=== PATIENT | male | born 1970 | race Caucasian/White ===

== ENCOUNTER → 2017-08-28 09:59 | Outpatient (CLI) | payer BC, SELFPAY ==
--- NOTE | 2017-08-28 10:04 | XR_ITS ---
XR chest 2V HISTORY: ITS.REASON: COUGH,SHORTNESS OF BREATH ORDERING PHYSICIAN: Mikhail Flowers PATIENT AGE: 47 years COMPARISON: 07/23/2014 FINDINGS: Borderline cardiomegaly without failure. No lobar consolidation or collapse. No acute bony anomalies. No effusions. IMPRESSION: Borderline cardiomegaly otherwise negative. No change with no acute finding.
== END ==
PROVIDERS: PCP Internal Medicine; Visit Provider Internal Medicine
DX: R06.02 Shortness of breath (principal); R05 Cough
CPT/HCPCS: 71046

== ENCOUNTER → 2019-03-04 09:30 | Outpatient (CLI) | payer BC, SELFPAY ==
--- NOTE | 2019-03-04 09:36 | XR_ITS ---
PROCEDURE: XR WRIST LT MIN 3V CLINICAL INDICATION: S/P FALL JAN 2019- LT FOREARM AND WRIST PAIN Fall with injury and pain COMPARISON: XR FOREARM LT 2V from 03/04/2019 FINDINGS: No fracture, dislocation, lytic change, or blastic change evident. No significant degenerative change IMPRESSION: No acute findings. Dictated by: Chauncey Dorantes MD 03/04/2019 12:28 Electronically signed by Chauncey Dorantes MD in [place] 03/04/2019 12:28
== END ==
PROVIDERS: PCP Internal Medicine; Visit Provider Internal Medicine
DX: M79.632 Pain in left forearm (principal); M25.532 Pain in left wrist
CPT/HCPCS: 73090; 73110

== ENCOUNTER → 2019-11-14 08:57 | Outpatient (CLI) | payer BC, SELFPAY ==
--- NOTE | 2019-11-14 | CA_ITS ---
APPROVED REPORT Exam: Exercise Treadmill Technologist: Carmen Solomon, Ht: 5 ft 8 in Wt: 193 lbs BSA: 2.01 m2 HR: 66 bpm BP: 125/92 mmHg Rhythm: NSR,ST ABNORMALITIES III ONLY Medical History Medical History: HTN Medications: Amlodipine,,,,, Hydralazine,,,,, Asa,,,,, Metformin,,,,, Losartan,,,,, Prilosec,,,,, Centrum Silver,,,,, BisOPROLOL/HCTZ,,,,, Gemfibrizil,,,,, Cardiac Risk Factors: HTN, FHX of CAD Stress Test Details Test: Lex HR Resting HR: 69 bpm Max Heart Rate (APMHR): 171 bpm Max HR Achieved: 135 bpm Target HR (85% APMHR): 145 bpm % of APMHR: 78 Recovery HR: 108 bpm BP Resting BP: 125.0/92.0 mmHg Max BP: 181.0/93.0 mmHg Recovery BP: 181.0/93.0 mmHg ECG Resting ECG: NSR,STABNORMALITIES III ONLY Clinical Reason for Termination: Leg Pain Exercise duration: 07:01 min Highest Stage Achieved: Exercise capacity: 10.1 METs Stress ECG Conclusion PATIENT EXERCISED 7:00 ON LEX PROTOCOL WITH MX HEART RATE 134 BPM WHICH IS 83% OF PM FOR AGE. METS = 10.1. TEST STOPPED DUE TO LEGS SHOT . NO CP. NO ARRHYTHMIAS/ECTOPY. <1.5MM ST SEGMENT CHANGES. NEGATIVE STRESS TEST BUT DID NOT ACHIEVE TARGET HEART RATE Test Summary RECOVERY 02:00 0.0 0.0 103 . . . . REST . . . . . . . Sitting REST . . . . . . . Sitting REST 05:37 0.0 0.0 69 . 125/ 92 . . Stage 1 01:00 10.0 1.7 93 . . . . Stage 1 02:00 10.0 1.7 99 . 140/ 92 . . Stage 1 03:00 10.0 1.7 104 . 140/ 92 . . Stage 2 01:00 12.0 2.5 109 . . . . Stage 2 02:00 12.0 2.5 116 . 148/ 92 . . Stage 2 03:00 12.0 2.5 122 . 148/ 92 . . Stage 3 01:00 14.0 3.4 134 . . . . Stage 3 01:01 14.0 3.4 134 . . . Stop exercise at 07:01 RECOVERY 01:00 0.0 0.0 118 . . . . RECOVERY 02:00 0.0 0.0 103 . . . . RECOVERY 03:00 0.0 0.0 97 . 181/ 93 . . RECOVERY 04:00 0.0 0.0 95 . 181/ 93 . . RECOVERY 05:00 0.0 0.0 92 . 181/ 93 . . RECOVERY 06:00 0.0 0.0 88 . 181/ 93 . . RECOVERY 06:21 0.0 0.0 87 . 144/ 93 . . Electronically signed by : Rick Lindsey, 11/14/2019 12:01:27
== END ==
PROVIDERS: PCP Internal Medicine; Visit Provider Internal Medicine
DX: R55 Syncope and collapse (principal)
CPT/HCPCS: 93017

== ENCOUNTER → 2020-03-17 09:49 | Outpatient (CLI) | payer BC, SELFPAY ==
[2020-03-17 10:38] LABS: Basophils # 0.1 K/mm3 (0-0.2); Basophils % 0.6 % (0.1-2.0); Eosinophils # 0.3 K/mm3 (0.0-0.4); Eosinophils % 2.4 % (0.1-12.0); Hematocrit 41.3 % (42.0-52.0); Hemoglobin 13.8 g/dL (14.1-18.0); Lymphocytes % 17.7 % (10-50); Mean Corpuscular HGB Conc 33.4 g/dL (31.8-35.4); Mean Corpuscular Hemoglobin 26.1 pg (27.0-31.2); Mean Corpuscular Volume 78.3 fl (80-94); Mean Platelet Volume 9.5 fl (7.4-10.4); Monocytes # 0.4 K/mm3 (0.1-1.0); Monocytes % 3.5 % (1.7-9.3); Neutrophils # 8.6 K/mm3 (1.8-7.8); Neutrophils % 75.8 % (37.0-80.0); Platelet Count 276 K/mm3 (142-424); Red Blood Count 5.28 M/mm3 (4.60-6.20); Red Cell Distribution Width 14.8 % (11.5-17.5); White Blood Count 11.4 K/mm3 (4.8-10.8)
[2020-03-17 10:46] LABS: Hemoglobin A1C 6.2 % (4.0-6.0)
[2020-03-17 11:03] LABS: Alanine Aminotransferase 24 U/L (12-78); Albumin Level 4.9 g/dl (3.5-5.0); Albumin/Globulin Ratio 1.6 (1.1-1.8); Alkaline Phosphatase 62 U/L (38-126); Anion Gap 15.2 mEq/L (5-15); Aspartate Amino Transferase 24 U/L (17-59); Bilirubin,Total 0.6 mg/dl (0.2-1.3); Blood Urea Nitrogen 25 mg/dl (9-20); Calcium 9.8 mg/dl (8.4-10.2); Carbon Dioxide 29 mmol/L (22.0-30.0); Chloride 101 mmol/L (98-107); Chol/HDL Ratio 5.6 (1-3.5); Cholesterol 168 mg/dl (140-200); Estimated Glomerular Filt Rate 64 ml/min (>60); GFR (African American) 78 ML/MIN (>60); Globulin 3.1 g/dL (1.3-3.2); Glucose 108 mg/dl (74-100); HDL Cholesterol 30 mg/dl (40-60); Potassium 4.2 mmoL/L (3.5-5.1); Sodium 141 mmol/L (136-145); Triglycerides 224 mg/dl (30-150); VLDL Cholesterol 45 mg/dL (0-40)
[2020-03-17 11:14] LABS: Direct LDL Cholesterol 93.32 mg/dL (100-129)
[2020-03-17 11:36] LABS: Prostate Specific Ag, Diagnost 0.702 ng/ml (0.0-4.0)
[2020-03-17 11:47] LABS: Erythrocyte Sedimentation Rate 16 mm/hr (0-15)
[2020-03-17 11:54] LABS: Vitamin B12 296 pg/mL (239-931)
== END ==
PROVIDERS: Visit Provider Internal Medicine
DX: E11.9 Type 2 diabetes mellitus without complications (principal); E78.5 Hyperlipidemia, unspecified; I10 Essential (primary) hypertension; Z79.84 Long term (current) use of oral hypoglycemic drugs; Z12.5 Encounter for screening for malignant neoplasm of prostate
CPT/HCPCS: 36415; 80053; 80061; 82607; 83036; 84153; 85025; 85651

== ENCOUNTER 2021-03-05 16:49 | Emergency (ER) | payer BC, SELFPAY ==
[2021-03-05] VITALS (7 sets, daily range): BP systolic 144–178; BP diastolic 88–116; PULSE 77–98; RESP 18; TEMP 36.6–36.8; O2SAT 97–100; BMI 29.0
--- NOTE | 2021-03-05 18:20 | ECG_ITS ---
APPROVED REPORT Exam: Resting ECG HR:83 bpm ECG Measurements Heart Rate 83 AXES RI 138 P 44 QRSd 82 QRS -22 QT 368 T 18 QTc 432 Conclusion Normal sinus rhythm Normal ECG Electronically signed by : Ted Hidalgo MD 03/07/2021 14:24:28
--- NOTE | 2021-03-05 18:25 | HMH.EDGENADL ---
ED Disposition Clinical Impression: Nausea and vomiting Qualifiers: Vomiting type: unspecified Vomiting Intractability: non-intractable Qualified Code(s): R11.2 - Nausea with vomiting, unspecified Disposition: Home, Self-Care Condition on Discharge: Good Additional Instructions: Take all medications as directed. Stay well-hydrated. [place], soft diet for the next 24 hours. Return the emergency department for continued nausea with vomiting, abdominal pain, fever. Referrals: Mikhail Flowers [Primary Care Provider] - 3 days Time of Disposition: 19:40 - Critical Care Critical Care Time: No Attestation: On 03/05/21, the high probability of a clinically significant, sudden or life threatening deterioration of the following system(s) required my full and direct attention, intervention and personal management. The time I documented below is in addition to time spent performing reported procedures but includes the following listed in this critical care notation. Medical Decision Making - Medical Records Medical records reviewed: Yes: I reviewed the patient's medical records. - Christiano Inquiry Pt receiving controlled substance: No Vital Signs: 03/05/21 18:45 Temperature 97.9 F Temperature Source Oral Pulse Rate [Right Radial] 98 H Respiratory Rate 18 Blood Pressure Source [Right Arm] Automatic Cuff Blood Pressure Position [Right Arm] Supine 02 Sat by Pulse Oximetry 98 Oxygen Delivery Method Room Air - Lab Data Lab results reviewed: Yes: I reviewed the patient's lab results. Lab Results 03/05/21 18:39: SARS-CoV-2 (PCR) Not detected, Influenza A Untype (PCR) Not detected, Influenza Type B (PCR) Not detected 03/05/21 18:40: WBC 6.8, RBC 4.96, Hgb 13.6 L, Hct 37.1 L, MCV 74.8 L, MCH 27.4, MCHC 36.7 H, RDW 15.0, Plt Count 278, MPV 9.5, Neut % (Auto) 67.7, Lymph % (Auto) 23.3, Winkler % (Auto) 7.7, Eos % (Auto) 0.7, Baso % (Auto) 0.6, Neut # (Auto) 4.6, Lymph # (Auto) 1.6, Winkler # (Auto) 0.5, Eos # (Auto) 0.1, Baso # (Auto) 0.0 03/05/21 18:40: Sodium 139, Potassium 3.0 L, Chloride 101, Carbon Dioxide 26, Anion Gap 15.0, BUN 18, Creatinine 1.20, Estimated Creat Clear 90, Estimated GFR 64, Est GFR ( Amer) 78, Glucose 122 H, Calcium 8.1 L, Total Bilirubin 0.7, AST 22, ALT 19, Alkaline Phosphatase 63, Troponin I < 0.01, Total Protein 7.4, Albumin 4.4, Globulin 3.0, Albumin/Globulin Ratio 1.5, Lipase 33 03/05/21 18:54: POC Glucose 121 H Result diagrams: 03/05/21 18:40 03/05/21 18:40 Orders (Tests/Meds): ED MEDICATIONS Generic Name Dose Route Start Last Admin Trade Name Freq PRN Reason Stop Dose Admin Lactated Ringer's 1,000 mls @ 999 mls/hr 03/05/21 18:45 03/05/21 18:52 Lactated Ringer's 1000 Ml Bag IV 03/05/21 19:45 999 mls/hr .Q1H1M GIFTY Administration Discontinued Medications Generic Name Dose Route Start Last Admin Trade Name Freq PRN Reason Stop Dose Admin Hydralazine HCl 10 mg 03/05/21 19:18 03/05/21 19:50 Hydralazine 20mg/Ml Vial IV 03/05/21 19:19 10 mg ONCE ONE Administration Ketorolac Tromethamine 15 mg 03/05/21 19:18 03/05/21 19:46 Ketorolac 30mg/Ml Vial IV 03/05/21 19:19 15 mg ONCE ONE Administration Ondansetron HCl 4 mg 03/05/21 18:34 03/05/21 18:53 Ondansetron 4mg/2ml Vial IV 03/05/21 18:35 4 mg ONCE ONE Administration ORDERS Category Date Time Status Troponin I Q3H Lab 03/05/21 21:30 Ordered Troponin I Q3H Lab 03/06/21 00:30 Ordered - ECG Data Tracing #1 I reviewed this ECG and interpreted as documented below: Normal sinus rhythm, 83 bpm, no ST elevation or depression, no ectopy, normal intervals. ECG initial impression date: 03/05/21 ECG initial impression time: 19:00 Medical Decision Narrative: 50yo M evaluated for nausea/vomiting/diarrhea. Patient is in no acute distress on initial evaluation. He ambulated into the emergency department without difficulty. Routine abdominal work-up was undertaken and the patient's laboratory s
[2021-03-05 18:52] LABS: Basophils % 0.6 % (0.1-2.0); Eosinophils # 0.1 K/mm3 (0.0-0.4); Eosinophils % 0.7 % (0.1-12.0); Hematocrit 37.1 % (42.0-52.0); Hemoglobin 13.6 g/dL (14.1-18.0); Lymphocytes # 1.6 K/mm3 (0.7-4.5); Lymphocytes % 23.3 % (10-50); Mean Corpuscular HGB Conc 36.7 g/dL (31.8-35.4); Mean Corpuscular Hemoglobin 27.4 pg (27.0-31.2); Mean Corpuscular Volume 74.8 fl (80-94); Mean Platelet Volume 9.5 fl (7.4-10.4); Monocytes # 0.5 K/mm3 (0.1-1.0); Monocytes % 7.7 % (1.7-9.3); Neutrophils # 4.6 K/mm3 (1.8-7.8); Neutrophils % 67.7 % (37.0-80.0); Platelet Count 278 K/mm3 (142-424); Red Blood Count 4.96 M/mm3 (4.60-6.20); White Blood Count 6.8 K/mm3 (4.8-10.8)
[2021-03-05 18:59] LABS: Chloride 101 mmol/L (98-107); Sodium 139 mmol/L (136-145)
[2021-03-05 19:01] LABS: POC Glucose,Bedside 121 (70-110)
[2021-03-05 19:01] LABS: Blood Urea Nitrogen 18 mg/dl (9-20); Creatinine Clearance Estimated 90 mL/min (50-200); Estimated Glomerular Filt Rate 64 ml/min (>60); GFR (African American) 78 ML/MIN (>60)
[2021-03-05 19:02] LABS: Alanine Aminotransferase 19 U/L (12-78); Albumin Level 4.4 g/dl (3.5-5.0); Albumin/Globulin Ratio 1.5 (1.1-1.8); Alkaline Phosphatase 63 U/L (38-126); Aspartate Amino Transferase 22 U/L (17-59); Bilirubin,Total 0.7 mg/dl (0.2-1.3); Calcium 8.1 mg/dl (8.4-10.2); Carbon Dioxide 26 mmol/L (22.0-30.0); Glucose 122 mg/dl (74-100); Lipase 33 U/L (23-300); Total Protein,Serum 7.4 g/dl (6.3-8.2)
[2021-03-05 19:17] LABS: Coronavirus 19, PCR Not Detected (NotDetected); Influenza A, PCR Not Detected (NotDetected); Influenza B, PCR Not Detected (NotDetected)
[2021-03-05 19:18] LABS: Troponin I < 0.01 ng/ml (0.00-0.034)
== END 2021-03-05 20:37 | disposition home or self-care (01) ==
PROVIDERS: Emergency Provider Family Medicine; PCP Internal Medicine
DX: R11.2 Nausea with vomiting, unspecified (principal); R19.7 Diarrhea, unspecified; E11.9 Type 2 diabetes mellitus without complications; E78.5 Hyperlipidemia, unspecified; I10 Essential (primary) hypertension; Z20.822 Contact with and (suspected) exposure to COVID-19
CPT/HCPCS: 80053; 82962; 83690; 84484; 85025; 93005; 96365; 96375; 99283; C9803; J2405; U0003; U0005

== ENCOUNTER → 2021-08-31 15:37 | Outpatient (CLI) | payer BC, SELFPAY ==
--- NOTE | 2021-08-31 15:46 | XR_ITS ---
FINAL REPORT CLINICAL HISTORY: RIGHT LOWER BACK PAIN; history of arthritis FINDINGS: LUMBAR SPINE 5 views of the lumbar spine show no fracture or subluxation. There is no malalignment. There is mild degenerative change. IMPRESSION: No acute bony abnormality. Reviewed, Interpreted and Dictated by Stanislav Patel MD Transcribed by Nicole Messina Authenticated by Stanislav Patel MD on 08/31/2021 05:07:12 PM [facility]
== END ==
PROVIDERS: PCP Internal Medicine; Visit Provider Internal Medicine
DX: M54.50 Low back pain, unspecified (principal)
CPT/HCPCS: 72110

== ENCOUNTER → 2021-10-19 13:33 | Outpatient (CLI) | payer BC, SELFPAY ==
[2021-10-19 14:47] LABS: Chloride 101 mmol/L (98-107); Potassium 4.2 mmoL/L (3.5-5.1); Sodium 138 mmol/L (136-145)
[2021-10-19 14:49] LABS: Alanine Aminotransferase 30 U/L (12-78); Alkaline Phosphatase 61 U/L (38-126); Aspartate Amino Transferase 31 U/L (17-59); Bilirubin,Total 0.5 mg/dl (0.2-1.3); Blood Urea Nitrogen 15 mg/dl (9-20); Estimated Glomerular Filt Rate 71 ml/min (>60); GFR (African American) 85 ML/MIN (>60)
[2021-10-19 14:50] LABS: Albumin Level 4.4 g/dl (3.5-5.0); Albumin/Globulin Ratio 1.5 (1.1-1.8); Anion Gap 15.2 mEq/L (5-15); Carbon Dioxide 26 mmol/L (22.0-30.0); Chol/HDL Ratio 5.5 (1-3.5); Cholesterol 137 mg/dl (140-200); Globulin 2.9 g/dL (1.3-3.2); Glucose 157 mg/dl (74-100); HDL Cholesterol 25 mg/dl (40-60); Total Protein,Serum 7.3 g/dl (6.3-8.2); Triglycerides 234 mg/dl (30-150); VLDL Cholesterol 47 mg/dL (0-40)
[2021-10-19 14:55] LABS: Hemoglobin A1C 6.4 % (4.0-6.0)
[2021-10-19 15:01] LABS: Direct LDL Cholesterol 69.97 mg/dL (100-129)
[2021-10-19 15:24] LABS: Prostate Specific Ag Screen 0.7 ng/ml (0.0-4.0)
== END ==
PROVIDERS: PCP Internal Medicine; Visit Provider Internal Medicine
DX: I10 Essential (primary) hypertension (principal); E11.9 Type 2 diabetes mellitus without complications; E78.5 Hyperlipidemia, unspecified; Z79.84 Long term (current) use of oral hypoglycemic drugs; Z12.5 Encounter for screening for malignant neoplasm of prostate
CPT/HCPCS: 80053; 80061; 83036; G0103

== ENCOUNTER → 2021-11-15 10:06 | Outpatient (POV) | payer BC, SELFPAY | PROVIDERS: Visit Provider Dermatology | DX: Z00.00 Encounter for general adult medical examination without abnormal findings (principal) ==

== ENCOUNTER → 2022-05-10 12:50 | Outpatient (CLI) | payer BC, SELFPAY ==
[2022-05-10 16:13] LABS: Alanine Aminotransferase 31 U/L (12-78); Albumin Level 4.5 g/dl (3.5-5.0); Albumin/Globulin Ratio 1.5 (1.1-1.8); Alkaline Phosphatase 68 U/L (38-126); Anion Gap 12.8 mEq/L (5-15); Aspartate Amino Transferase 26 U/L (17-59); Bilirubin,Total 0.8 mg/dl (0.2-1.3); Blood Urea Nitrogen 16 mg/dl (9-20); Calcium 8.6 mg/dl (8.4-10.2); Carbon Dioxide 28 mmol/L (22.0-30.0); Chloride 103 mmol/L (98-107); Chol/HDL Ratio 5.4 (1-3.5); Cholesterol 130 mg/dl (140-200); Estimated Glomerular Filt Rate 89 ml/min (>60); GFR (African American) 108 ML/MIN (>60); Glucose 116 mg/dl (74-100); HDL Cholesterol 24 mg/dl (40-60); Potassium 3.8 mmoL/L (3.5-5.1); Sodium 140 mmol/L (136-145); Total Protein,Serum 7.5 g/dl (6.3-8.2); Triglycerides 264 mg/dl (30-150); VLDL Cholesterol 53 mg/dL (0-40)
[2022-05-10 16:30] LABS: Direct LDL Cholesterol 66.49 mg/dL (100-129)
[2022-05-10 16:43] LABS: Thyroid Stimulating Hormone 1.23 uIU/mL (0.465-4.68)
[2022-05-11 11:37] LABS: Creatinine,Urine Random 245 mg/dL (Not Estab.); Microalbumin/Creatinine Ratio 36.5
[2022-05-12 10:02] LABS: Testosterone,Total 302 ng/dL (264-916)
== END ==
PROVIDERS: PCP Internal Medicine; Visit Provider Internal Medicine
DX: R53.82 Chronic fatigue, unspecified (principal); E11.9 Type 2 diabetes mellitus without complications; E78.5 Hyperlipidemia, unspecified; I10 Essential (primary) hypertension; M41.25 Other idiopathic scoliosis, thoracolumbar region; Z79.84 Long term (current) use of oral hypoglycemic drugs
CPT/HCPCS: 80053; 80061; 82043; 82570; 83036; 84403; 84443

== ENCOUNTER → 2022-11-07 15:29 | Outpatient (CLI) | payer BC, SELFPAY ==
[2022-11-07 16:43] LABS: Basophils # 0.1 K/mm3 (0-0.2); Basophils % 0.6 % (0.1-2.0); Eosinophils # 0.2 K/mm3 (0.0-0.4); Eosinophils % 1.7 % (0.1-12.0); Hematocrit 36.1 % (42.0-52.0); Lymphocytes # 1.7 K/mm3 (0.7-4.5); Lymphocytes % 15.2 % (10-50); Mean Corpuscular HGB Conc 33.3 g/dL (31.8-35.4); Mean Corpuscular Hemoglobin 25.5 pg (27.0-31.2); Mean Corpuscular Volume 76.7 fl (80-94); Mean Platelet Volume 10.5 fl (7.4-10.4); Monocytes # 0.4 K/mm3 (0.1-1.0); Monocytes % 3.5 % (1.7-9.3); Neutrophils # 8.5 K/mm3 (1.8-7.8); Neutrophils % 78.9 % (37.0-80.0); Platelet Count 304 K/mm3 (142-424); Red Cell Distribution Width 15.1 % (11.5-17.5); White Blood Count 10.8 K/mm3 (4.8-10.8)
[2022-11-07 18:11] LABS: Erythrocyte Sedimentation Rate > 140 mm/hr (0-20)
[2022-11-07 18:25] LABS: Alanine Aminotransferase 25 U/L (12-78); Albumin Level 4.6 g/dl (3.5-5.0); Albumin/Globulin Ratio 1.6 (1.1-1.8); Alkaline Phosphatase 81 U/L (38-126); Amylase 89 U/L (30-110); Anion Gap 16.4 mEq/L (5-15); Aspartate Amino Transferase 29 U/L (17-59); Bilirubin,Total 0.5 mg/dl (0.2-1.3); Blood Urea Nitrogen 19 mg/dl (9-20); Calcium 9.1 mg/dl (8.4-10.2); Carbon Dioxide 27 mmol/L (22.0-30.0); Chloride 103 mmol/L (98-107); Chol/HDL Ratio 6.5 (1-3.5); Cholesterol 144 mg/dl (140-200); Estimated Glomerular Filt Rate 53 ml/min (>60); GFR (African American) 64 ML/MIN (>60); Globulin 2.8 g/dL (1.3-3.2); Glucose 92 mg/dl (74-100); HDL Cholesterol 22 mg/dl (40-60); Potassium 4.4 mmoL/L (3.5-5.1); Sodium 142 mmol/L (136-145); Total Protein,Serum 7.4 g/dl (6.3-8.2); Triglycerides 207 mg/dl (30-150); VLDL Cholesterol 41 mg/dL (0-40)
[2022-11-07 18:37] LABS: Direct LDL Cholesterol 74.95 mg/dL (100-129)
[2022-11-08 02:04] LABS: Hemoglobin A1C 5.9 % (4.0-6.0)
[2022-11-12 02:07] LABS: F026-IgE Pork < 0.10 kU/L (Class 0); F027-IgE Beef < 0.10 kU/L (Class 0); F088-IgE Lamb < 0.10 kU/L (Class 0); Immunoglobulin E, Total 20 IU/mL (6-495); O215-IgE Alpha-Gal < 0.10 kU/L (Class 0)
[2022-11-13 23:41] LABS: Lyme B. burgdorferi PCR Blood Negative (Negative)
== END ==
LOC: LAB.DROPOF 15:30
PROVIDERS: PCP Internal Medicine; Visit Provider Internal Medicine
DX: E11.9 Type 2 diabetes mellitus without complications (principal); I10 Essential (primary) hypertension; E78.5 Hyperlipidemia, unspecified; R10.13 Epigastric pain; R11.0 Nausea; R19.7 Diarrhea, unspecified; Z79.84 Long term (current) use of oral hypoglycemic drugs
CPT/HCPCS: 80053; 80061; 82150; 83036; 85025; 85651; 87476

== ENCOUNTER → 2022-11-08 13:23 | Outpatient (CLI) | payer BC, SELFPAY ==
[2022-11-08 14:51] LABS: Occult Blood,Stool Negative (Negative)
[2022-11-08 17:02] LABS: Adenovirus F 40/41, stool Not Detected (NotDetected); Astrovirus Not Detected (NotDetected); Campylobacter Not Detected (NotDetected); Cryptosporidium Not Detected (NotDetected); Cyclospora Cayetanesis Not Detected (NotDetected); Entamoeba histolytica Not Detected (NotDetected); Enteroaggregative E coli Not Detected (NotDetected); Enteropathogenic E coli Not Detected (NotDetected); Enterotoxigenic E coli Not Detected (NotDetected); Giardia lamblia Not Detected (NotDetected); Norovirus Not Detected (NotDetected); Plesimonas Shigalloides, PCR Not Detected (NotDetected); Rotavirus A Not Detected (NotDetected); Salmonella, PCR Not Detected (NotDetected); Sapovirus Not Detected (NotDetected); Shiga-like toxin E coli Not Detected (NotDetected); Shigella Enterovasive E coli Not Detected (NotDetected); Vibrio Cholerae Not Detected (NotDetected); Vibrio, PCR Not Detected (NotDetected); Yersinia Entercolitica, PCR Not Detected (NotDetected)
[2022-11-08 17:04] LABS: Clostridium Difficile A/B, PCR Detected (NotDetected)
== END ==
LOC: LAB.DROPOF 13:23
PROVIDERS: PCP Internal Medicine; Visit Provider Internal Medicine
DX: R10.13 Epigastric pain (principal); R19.7 Diarrhea, unspecified; R11.0 Nausea; A04.72 Enterocolitis due to Clostridium difficile, not specified as recurrent
CPT/HCPCS: 82272; 87177; 87205; 87506; G0328

== ENCOUNTER → 2023-01-02 13:20 | Outpatient (CLI) | payer BC, SELFPAY | PROVIDERS: PCP Internal Medicine; Visit Provider Internal Medicine | DX: R19.7 Diarrhea, unspecified (principal) | CPT/HCPCS: 87324 ==

== ENCOUNTER 2023-07-11 14:27 | Outpatient (CLI) | payer BC, SELFPAY ==
--- NOTE | 2023-07-11 14:57 | XR_ITS ---
FINAL REPORT CLINICAL HISTORY: EPIGASTRIC PAIN,HYPERLIPIDEMIA COMPARISON: None FINDINGS: Chest: The heart and mediastinal within normal limits. There is an elevated right hemidiaphragm. There are mild right base opacities which are favored to represent atelectasis. The left lung is clear. There is no pneumothorax. Osseous structures are unremarkable. Abdomen: AP and upright views of the abdomen were obtained. There is a nonobstructive bowel gas pattern. There is no free air. No abnormal calcifications are identified. IMPRESSION: Moderate right base opacities, favor atelectasis. Nonobstructive bowel gas pattern. Reviewed, Interpreted and Dictated by Macario Au III, MD Transcribed by Chiquita Lamar Authenticated and [facility]
[2023-07-11 15:27] LABS: Basophils # 0.1 K/mm3 (0-0.2); Basophils % 0.8 % (0.1-2.0); Eosinophils # 0.3 K/mm3 (0.0-0.4); Eosinophils % 2.6 % (0.1-12.0); Hematocrit 38.1 % (42.0-52.0); Hemoglobin 13.4 g/dL (14.1-18.0); Lymphocytes # 2.1 K/mm3 (0.7-4.5); Lymphocytes % 18.1 % (10-50); Mean Corpuscular HGB Conc 35.1 g/dL (31.8-35.4); Mean Corpuscular Hemoglobin 28.1 pg (27.0-31.2); Mean Corpuscular Volume 80.1 fl (80-94); Mean Platelet Volume 9.8 fl (7.4-10.4); Monocytes # 0.4 K/mm3 (0.1-1.0); Monocytes % 3.6 % (1.7-9.3); Neutrophils # 8.6 K/mm3 (1.8-7.8); Neutrophils % 74.9 % (37.0-80.0); Platelet Count 267 K/mm3 (142-424); Red Blood Count 4.75 M/mm3 (4.60-6.20); Red Cell Distribution Width 15.5 % (11.5-17.5); White Blood Count 11.4 K/mm3 (4.8-10.8)
[2023-07-11 15:28] LABS: Chloride 105 mmol/L (98-107)
[2023-07-11 15:29] LABS: Potassium 3.7 mmoL/L (3.5-5.1); Sodium 142 mmol/L (136-145)
[2023-07-11 15:31] LABS: Alanine Aminotransferase 31 U/L (12-78); Alkaline Phosphatase 67 U/L (38-126); Amylase 95 U/L (30-110); Anion Gap 11.7 mEq/L (5-15); Aspartate Amino Transferase 34 U/L (17-59); Bilirubin,Total 0.6 mg/dl (0.2-1.3); Blood Urea Nitrogen 15 mg/dl (9-20); Carbon Dioxide 29 mmol/L (22.0-30.0); Cholesterol 193 mg/dl (140-200); Estimated Glomerular Filt Rate 58 ml/min (>60); GFR (African American) 70 ML/MIN (>60); Triglycerides 225 mg/dl (30-150); VLDL Cholesterol 45 mg/dL (0-40)
[2023-07-11 15:32] LABS: Albumin Level 4.5 g/dl (3.5-5.0); Albumin/Globulin Ratio 1.3 (1.1-1.8); Calcium 8.8 mg/dl (8.4-10.2); Chol/HDL Ratio 7.1 (1-3.5); Globulin 3.4 g/dL (1.3-3.2); Glucose 118 mg/dl (74-100); HDL Cholesterol 27 mg/dl (40-60); Total Protein,Serum 7.9 g/dl (6.3-8.2)
[2023-07-11 15:43] LABS: Direct LDL Cholesterol 96.78 mg/dL (100-129)
--- NOTE | 2023-07-11 16:34 | CT_ITS ---
PROCEDURE INFORMATION: Exam: CT Abdomen And Pelvis Without Contrast Exam date and time: 07/11/2023 5:51 PM Age: 53 years old Clinical indication: Abdominal pain; Generalized; Additional info: Small bowel obstruction, with oral contrast TECHNIQUE: Imaging protocol: Computed tomography of the abdomen and pelvis without contrast. Radiation optimization: All CT scans at this facility use at least one of these dose optimization techniques: automated exposure control; mA and/or kV adjustment per patient size (includes targeted exams where dose is matched to clinical indication); or iterative reconstruction. COMPARISON: CR XR ACUTE ABDOMEN SERIES 07/11/2023 3:27 PM FINDINGS: Lungs: Elevated right hemidiaphragm with adjacent bandlike atelectasis in the right base. Heart: Heart size normal. Mild-moderate coronary artery calcification. Esophagus: The visualized distal esophagus is largely contracted without gross abnormality. Liver: Normal contour. No mass lesions. No intrahepatic biliary ductal dilatation. Gallbladder and bile ducts: Prior cholecystectomy with no significant dilatation of the common bile duct. Pancreas: No acute pancreatic abnormalities. Minimal calcification in the pancreatic body possibly reflecting changes of remote pancreatitis, or possibly vascular calcification although no significant atherosclerosis is seen elsewhere. Spleen: Normal. No splenomegaly. Adrenal glands: Normal. No adrenal mass. Kidneys and ureters: 2 x 1.7 x 1.5 cm indeterminate exophytic lesion at the posterolateral lower pole of the right kidney series 3, image 61 measuring 36 Hounsfield units average density. Recommend nonemergent evaluation with pre and postcontrast MRI or CT. Moderate bilateral symmetrical perinephric stranding which is nonspecific and age indeterminate. This may relate to perirenal scarring or edema. Clinical/laboratory correlation is recommended for evidence of medical renal disease. No hydronephrosis or hydroureter. No urinary tract stones are identified. Stomach and bowel: The stomach is largely contracted. The small bowel is nondilated with no gross abnormality. There is mild colonic wall thickening in the mid to distal sigmoid colon and rectum which may be due to partially contracted status although can not exclude mild distal colitis. No perforation or abscess. Appendix: No evidence of appendicitis. Sutures or calcifications at the medial cecal base suggest prior appendectomy, correlate with operative history. Intraperitoneal space: No peritoneal free fluid or air. Vasculature: No acute process. No abdominal aortic aneurysm. Lymph nodes: No adenopathy. Urinary bladder: The urinary bladder is largely contracted with wall thickening which may relate to its contracted status. Slight adjacent stranding. Correlate with UA for evidence of cystitis. Reproductive: Unremarkable as visualized. Bones/joints: No acute osseous abnormalities. Mild thoracolumbar spondylosis. Soft tissues: There is a 4.1 x 3.0 x 6.1 cm fat density mass in the right gluteus minimus musculature without internal soft tissue nodularity or thick septi, favoring intramuscular lipoma. IMPRESSION: 1. No evidence of bowel obstruction or perforation. 2. Mild colonic wall thickening in the mid to distal sigmoid colon and rectum may be due to partially contracted status although can not exclude mild colitis. No perforation or abscess. 3. Urinary bladder is largely contracted, probably accounting for the thick-walled appearance although there is slight adjacent stranding, correlate with UA for evidence of cystitis. 4. There is a 2 cm indeterminate exophytic lesion arising from the right renal cortex lower pole. Recommend nonemergent evaluation with pre and postcontrast MRI or CT. 5. Moderate bilateral symmetrical perinephric stranding, nonspecific and age indeterminate. This might relate to chronic perirenal scarring or edema although correlate clinically for evidence of medical renal disease. No hydronephrosis. 6. Additional nonemergent findings detailed above.
[2023-07-11] MEDS: DIATRIZOATE MEG 66% & DIATRIZOATE NA 10% 30ML UDC 30 ML PO (16:39)
== END 2023-07-11 23:59 ==
PROVIDERS: PCP Internal Medicine; Visit Provider Internal Medicine
DX: R10.13 Epigastric pain (principal); R11.2 Nausea with vomiting, unspecified; E78.5 Hyperlipidemia, unspecified
CPT/HCPCS: 36415; 74021; 74176; 80053; 80061; 82150; 85025

== ENCOUNTER 2023-10-25 12:41 | Outpatient (CLI) | payer BC, SELFPAY ==
[2023-10-25 13:03] LABS: Blood Urea Nitrogen 17 mg/dl (9-20); Estimated Glomerular Filt Rate 58 ml/min (>60); GFR (African American) 70 ML/MIN (>60)
== END 2023-10-25 23:59 | disposition home or self-care (01) ==
LOC: LAB 12:42
PROVIDERS: PCP Internal Medicine; Visit Provider Internal Medicine
DX: I10 Essential (primary) hypertension (principal); E11.9 Type 2 diabetes mellitus without complications; E78.5 Hyperlipidemia, unspecified
CPT/HCPCS: 36415; 82565; 84520

== ENCOUNTER 2023-10-26 07:33 | Outpatient (CLI) | payer BC, SELFPAY ==
--- NOTE | 2023-10-26 07:33 | MR_ITS ---
FINAL REPORT TECHNIQUE: Multiplanar and multisequence imaging was obtained before and after the intravenous injection of gadolinium contrast. CLINICAL HISTORY: Mass of right kidney COMPARISON: 07/11/2023 FINDINGS: The liver is mildly fatty infiltrated, without focal hepatic lesion. The gallbladder is absent. There is no biliary ductal dilatation. The spleen is normal in size and signal intensity. The adrenal glands and pancreas are without acute abnormality. There is a 2 to, hyperintense exophytic lesion arising from the inferior right kidney measuring 21 mm which is also hyperintense on T1 imaging. There is no hydronephrosis. There is no abnormal enhancement.. Limited evaluation of the GI tract is without acute abnormality. There is no abdominal lymphadenopathy or ascites. IMPRESSION: T1/T2 hyperintense right renal lesion, favor proteinaceous or hemorrhagic cyst. Recommend 12 month follow-up. Reviewed, Interpreted and Dictated by Archana Rincon MD Transcribed by Solange Sarkar Authenticated and [facility]
[2023-10-26] MEDS: GADOTERIDOL INJ 20ML SYRINGE 17 ML IV (08:45)
[2023-10-26] MEDS: SODIUM CHLORIDE 0.9% 10ML FLUSH SYRINGE 10 ML IV (08:45)
[2023-10-26] MEDS: 0.9 % SODIUM CHLORIDE 50 ML VIAL 20 ML IV (08:45)
== END 2023-10-26 23:59 | disposition home or self-care (01) ==
LOC: RAD 07:33
PROVIDERS: PCP Internal Medicine; Visit Provider Internal Medicine
DX: N28.89 Other specified disorders of kidney and ureter (principal)
CPT/HCPCS: 74183; A9576

== ENCOUNTER 2023-10-29 11:11 | Outpatient (CLI) | payer BC, SELFPAY ==
--- NOTE | 2023-10-29 11:12 | FL_ITS ---
FINAL REPORT CLINICAL HISTORY: 15.11 mGy 242.78 DAP right side diaphragm paralysis FINDINGS: SNIFF TEST HISTORY: Shortness of breath. Elevated right hemidiaphragm. TECHNIQUE: Patient's diaphragm was observed under fluoroscopy during breathing and sniff maneuvers. DAP: 242.78 uGy.m2 Radiation exposure in Reference air Kerma: 15.11 mGy. FINDINGS: A sniff test was performed. there is no downward excursion of the right hemidiaphragm during breathing maneuvers. There is paradoxical movement of the right hemidiaphragm compared to the left hemidiaphragm during sniff maneuver. 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 Films reviewed , interpreted and dictated by Dr. Mendoza. Transcribed by Clarke Iglesias PA-C. Reviewed, Interpreted and Dictated by Mindy Mendoza MD Transcribed by OLY Valero Authenticated and [facility]
== END 2023-10-29 23:59 | disposition home or self-care (01) ==
LOC: RAD 11:12
PROVIDERS: PCP Internal Medicine; Visit Provider Internal Medicine
DX: J98.6 Disorders of diaphragm (principal)
CPT/HCPCS: 76000

== ENCOUNTER 2023-11-20 06:53 | Outpatient (CLI) | payer BC, SELFPAY ==
--- NOTE | 2023-11-20 06:55 | CT_ITS ---
FINAL REPORT TECHNIQUE: Axial CT images were performed from the lung apices through the upper abdomen. Coronal reformats were submitted. This study was performed with techniques to keep radiation doses as low as reasonably achievable (ALARA). Individualized dose reduction techniques using automated exposure control or adjustment of mA and/or kV according to the patient's size were employed. CLINICAL HISTORY: disorder of diaphargm FINDINGS: There is no axillary adenopathy. There is no hilar or mediastinal mass or adenopathy. Heart size is normal. There is moderate coronary artery calcification. There is slight elevation of the right hemidiaphragm, diaphragm paralysis is not excluded. Note is made of mild gynecomastia. There is no pericardial or pleural effusion. Limited images of the upper abdomen are unremarkable. No suspicious infiltrate or nodule is identified on lung window images. There is mild right base atelectasis. IMPRESSION: Elevation of the right hemidiaphragm, diaphragm paralysis is not excluded. Reviewed, Interpreted and Dictated by Macario Au III, MD Transcribed by Cleo Goode Authenticated and [facility]
== END 2023-11-20 23:59 | disposition home or self-care (01) ==
LOC: RAD 06:55
PROVIDERS: PCP Internal Medicine; Visit Provider Internal Medicine
DX: J98.6 Disorders of diaphragm (principal)
CPT/HCPCS: 71250

== ENCOUNTER 2023-11-27 07:12 | Outpatient (CLI) | payer BC, SELFPAY ==
[2023-11-27 07:51] VITALS: BMI 29.0
[2023-11-27] MEDS: IVABRADINE HCL 7.5MG TABLET *IVABRADINE+METOPROLOL REGIMINE 15 MG PO (08:17)
[2023-11-27] MEDS: METOPROLOL TARTRATE 50MG TABLET *IVABRADINE+METOPROLOL REGIMINE 50 MG PO (08:17)
[2023-11-27 08:19] VITALS: BP 133/85; PULSE 67; RESP 16; O2SAT 99
[2023-11-27 09:15] LABS: Anion Gap 13.7 mEq/L (5-15); Blood Urea Nitrogen 18 mg/dl (9-20); Calcium 8.5 mg/dl (8.4-10.2); Carbon Dioxide 25 mmol/L (22.0-30.0); Chloride 103 mmol/L (98-107); Creatinine Clearance Estimated 75 mL/min (50-200); Estimated Glomerular Filt Rate 53 ml/min (>60); GFR (African American) 64 ML/MIN (>60); Glucose 106 mg/dl (74-100); Potassium 3.7 mmoL/L (3.5-5.1); Sodium 138 mmol/L (136-145)
--- NOTE | 2023-11-27 09:51 | PC.NURSE ---
0940: Arrived to CT scanner for CTA. WEISSENHAUSarlene Lagunayla was going over consent for contrast dye. Pt states I have had an anaphylactic reaction to shellfish. Pt brought back upstairs. 0955: Spoke with Dr. Flowers's nurse, Amelia. New order to cancel scan. Pt to call for a follow up appointment.
== END 2023-11-27 23:59 | disposition home or self-care (01) ==
PROVIDERS: PCP Internal Medicine; Visit Provider Internal Medicine
DX: I25.10 Atherosclerotic heart disease of native coronary artery without angina pectoris (principal); E11.9 Type 2 diabetes mellitus without complications; R06.00 Dyspnea, unspecified
CPT/HCPCS: 36415; 80048

== ENCOUNTER 2024-01-08 09:50 | Outpatient (CLI) | payer BC, SELFPAY ==
[2024-01-08 17:00] LABS: Basophils # 0.1 K/mm3 (0-0.2); Basophils % 0.9 % (0.1-2.0); Eosinophils # 0.4 K/mm3 (0.0-0.4); Eosinophils % 3.9 % (0.1-12.0); Hematocrit 41.7 % (42.0-52.0); Hemoglobin 13.6 g/dL (14.1-18.0); Lymphocytes # 1.8 K/mm3 (0.7-4.5); Lymphocytes % 17.6 % (10-50); Mean Corpuscular HGB Conc 32.6 g/dL (31.8-35.4); Mean Corpuscular Hemoglobin 27.1 pg (27.0-31.2); Mean Corpuscular Volume 83.4 fl (80-94); Mean Platelet Volume 10.3 fl (7.4-10.4); Monocytes # 0.4 K/mm3 (0.1-1.0); Monocytes % 4.1 % (1.7-9.3); Neutrophils # 7.7 K/mm3 (1.8-7.8); Neutrophils % 73.6 % (37.0-80.0); Platelet Count 321 K/mm3 (142-424); Red Cell Distribution Width 15.7 % (11.5-17.5); White Blood Count 10.5 K/mm3 (4.8-10.8)
[2024-01-08 17:06] LABS: Creatinine,Urine Random 115 mg/dL (Not Estab.)
[2024-01-08 17:24] LABS: Alanine Aminotransferase 21 U/L (12-78); Albumin Level 4.8 g/dl (3.5-5.0); Albumin/Globulin Ratio 1.5 (1.1-1.8); Alkaline Phosphatase 59 U/L (38-126); Aspartate Amino Transferase 26 U/L (17-59); Bilirubin,Total 0.6 mg/dl (0.2-1.3); Blood Urea Nitrogen 21 mg/dl (9-20); Calcium 9.5 mg/dl (8.4-10.2); Carbon Dioxide 26 mmol/L (22.0-30.0); Chloride 100 mmol/L (98-107); Chol/HDL Ratio 6.5 (1-3.5); Cholesterol 181 mg/dl (140-200); Estimated Glomerular Filt Rate 58 ml/min (>60); GFR (African American) 70 ML/MIN (>60); Globulin 3.1 g/dL (1.3-3.2); Glucose 110 mg/dl (74-100); HDL Cholesterol 28 mg/dl (40-60); Sodium 138 mmol/L (136-145); Total Protein,Serum 7.9 g/dl (6.3-8.2); Triglycerides 237 mg/dl (30-150); VLDL Cholesterol 47 mg/dL (0-40)
[2024-01-08 17:33] LABS: Hemoglobin A1C 6.3 % (4.0-6.0)
[2024-01-08 18:17] LABS: Anion Gap 16.5 mEq/L (5-15); Potassium 4.5 mmoL/L (3.5-5.1)
[2024-01-08 18:20] LABS: Iron 79 ug/dL (49-181)
[2024-01-08 18:35] LABS: Total Iron Binding Capacity 431 ug/dL (261-462)
[2024-01-08 19:35] LABS: Prostate Specific Ag Screen 0.8 ng/ml (0.0-4.0)
== END 2024-01-08 23:59 | disposition home or self-care (01) ==
LOC: LAB.DROPOF 01-09 10:13
PROVIDERS: PCP Internal Medicine; Visit Provider Internal Medicine
DX: E78.5 Hyperlipidemia, unspecified (principal); Z12.5 Encounter for screening for malignant neoplasm of prostate; E11.59 Type 2 diabetes mellitus with other circulatory complications; I25.10 Atherosclerotic heart disease of native coronary artery without angina pectoris; I10 Essential (primary) hypertension; D64.9 Anemia, unspecified; Z79.84 Long term (current) use of oral hypoglycemic drugs
CPT/HCPCS: 80053; 80061; 82043; 82570; 83036; 83540; 83550; 85025; G0103

== ENCOUNTER 2024-06-02 15:23 | Outpatient (CLI) | payer BC, SELFPAY ==
--- NOTE | 2024-06-02 15:26 | XR_ITS ---
FINAL REPORT CLINICAL HISTORY: Cough and shortness of breath COMPARISON: 08/28/2017 FINDINGS: No acute pulmonary density is evident. There is no evidence of effusion or other pleural disease. There is chronic elevation the right hemidiaphragm. The mediastinum otherwise has a normal appearance. The cardiac silhouette is unremarkable. IMPRESSION: Unremarkable chest exam. Reviewed, Interpreted and Dictated by Mindy Mendoza MD Transcribed by Samantha Roa Authenticated and [facility]
== END 2024-06-02 23:59 | disposition home or self-care (01) ==
LOC: RAD 15:24
PROVIDERS: PCP Internal Medicine; Visit Provider Internal Medicine
DX: R06.02 Shortness of breath (principal); R05.9 Cough, unspecified
CPT/HCPCS: 71046